=== PATIENT | male | born 1995 | race Caucasian/White ===

== ENCOUNTER 2022-10-02 23:39 | Emergency (ER) | payer SELFPAY ==
[~2022-10-02] VITALS: Ht 182.9 cm; Wt 79.4 kg
[2022-10-03] MEDS ORDERED: IBUPROFEN 400 MG TABLET PO ONE (00:30)
[2022-10-03] MEDS ORDERED: IBUPROFEN 400 MG TABLET ONE (00:30)
[2022-10-03] MEDS ORDERED: IBUP-1957 PO (01:05)
--- NOTE | 2022-10-03 01:47 | NUR ---
Pt ok to discharge home per Dr Chowdhury. Patient discharged to home in stable condition. Written and verbal after care instructions given. Patient verbalizes understanding of instruction.Patient is awake and alert to self, day, and place. pt ambulatory with a steady gait
[2022-10-03 01:49] VITALS: BP 139/72
== END 2022-10-03 01:49 | disposition home or self-care (01) ==
LOC: ER 23:42
DX: S20.211A Contusion of right front wall of thorax, initial encounter (principal); S43.401A Unspecified sprain of right shoulder joint, initial encounter; V89.2XXA Person injured in unspecified motor-vehicle accident, traffic, initial encounter; Y93.89 Activity, other specified; Y92.89 Other specified places as the place of occurrence of the external cause; Y99.8 Other external cause status
CPT/HCPCS: 71100-TC; 73030-TC